=== PATIENT | male | born 1970 | race Two or more races ===

== ENCOUNTER → 2022-12-09 | Outpatient (CLI) | payer OTHER ==
[2022-12-09 14:02] LABS: Ferritin 117.7 ng/mL (10-322)
[2022-12-09 14:03] LABS: Folate (Folic Acid) > 24.00 ng/mL (5.38-24)
== END | disposition home or self-care (01) ==
LOC: LAB 12:54
PROVIDERS: ATTEND Psychiatry & Neurology Neurology
DX: M54.2 Cervicalgia (principal); E61.1 Iron deficiency; G62.2 Polyneuropathy due to other toxic agents; G61.81 Chronic inflammatory demyelinating polyneuritis
CPT/HCPCS: 36415; 82607; 82728; 82746; 83540; 84436; 84443